=== PATIENT | female | born 2000 | race Caucasian/White ===

== ENCOUNTER 2022-09-09 20:54 | Emergency (ER) | payer MEDICAID ==
[~2022-09-09] VITALS: Ht 175.3 cm; Wt 149.7 kg
--- NOTE | 2022-09-09 20:58 | NUR ---
PT RYANNE MCCURDY, OFFLOADED TO ER LOBBY VIA WHEELCHAIR BY EMS
[2022-09-09 20:59] VITALS: BP 137/84; PULSE 78; RESP 20; TEMP 97.5; O2SAT 99
--- NOTE | 2022-09-09 23:13 | NUR ---
PT WENT TO BED 2
--- NOTE | 2022-09-09 23:49 | NUR ---
DR EXAMINING THE PATIENT
[2022-09-10] MEDS ORDERED: KETOROLAC 30 MG/ML VIAL IM ONE (00:30)
--- NOTE | 2022-09-10 00:30 | NUR ---
x ray at the bedside
[2022-09-10] MEDS ORDERED: NAPR-54 PO (01:38)
[2022-09-10 01:41] VITALS: BP 137/84; PULSE 78; RESP 20; TEMP 97.5; O2SAT 99
== END 2022-09-10 01:42 | disposition home or self-care (01) ==
LOC: MED 20:54
DX: S83.92XA Sprain of unspecified site of left knee, initial encounter (principal); S70.12XA Contusion of left thigh, initial encounter; Z79.899 Other long term (current) drug therapy; V89.2XXA Person injured in unspecified motor-vehicle accident, traffic, initial encounter; Y93.89 Activity, other specified; Y92.89 Other specified places as the place of occurrence of the external cause; Y99.8 Other external cause status
CPT/HCPCS: 73552; 99283; Q0092; J1885

== ENCOUNTER 2023-01-07 15:26 | Emergency (ER) | payer MEDICAID, OTHER ==
[~2023-01-07] VITALS: Ht 175.3 cm; Wt 149.7 kg
[~2023-01-07 15:26] MED LIST: NAPR-54 PO
[2023-01-07 15:47] VITALS: BP 138/77; PULSE 89; RESP 20; TEMP 98.3; O2SAT 98
[2023-01-07] MEDS ORDERED: IBUPROFEN 800 MG TAB PO ONE (16:45)
[2023-01-07 17:12] VITALS: BP 138/77; PULSE 89; RESP 20; TEMP 98.3; O2SAT 98
[2023-01-07] MEDS ORDERED: IBUP-2213 PO (17:23)
== END 2023-01-07 17:26 | disposition home or self-care (01) ==
LOC: MED 15:26
DX: M79.644 Pain in right finger(s) (principal); Z79.1 Long term (current) use of non-steroidal anti-inflammatories (NSAID)
CPT/HCPCS: 73140; 99283; Q0092